=== PATIENT | male | born 1965 | race African-American/Black ===

== ENCOUNTER 2018-04-24 21:48 | Emergency (ER) | payer MEDICAID ==
[~2018-04-24] VITALS: Ht 172.7 cm; Wt 106.8 kg
[2018-04-24] MEDS ORDERED: PRAZ2 PO (22:08)
[2018-04-24] MEDS ORDERED: METF-444 PO (22:08)
[2018-04-24] MEDS ORDERED: OLAN10TA3 PO (22:08)
[2018-04-24 22:56] VITALS: BP 156/88
== END 2018-04-24 23:31 | disposition home or self-care (01) ==
LOC: EMS 21:51
DX: S90.32XA Contusion of left foot, initial encounter (principal); E11.9 Type 2 diabetes mellitus without complications; F17.210 Nicotine dependence, cigarettes, uncomplicated; W22.8XXA Striking against or struck by other objects, initial encounter; Y93.01 Activity, walking, marching and hiking; Y92.89 Other specified places as the place of occurrence of the external cause; Y99.8 Other external cause status
CPT/HCPCS: 99284

== ENCOUNTER 2019-04-26 20:22 | Inpatient (IN) | payer MEDICAID, OTHER ==
[~2019-04-26] VITALS: Ht 172.7 cm; Wt 105.0 kg
[~2019-04-26 20:22] MED LIST: METF-444 PO; OLAN10TA3 PO; PRAZ2 PO
[2019-04-26] MEDS ORDERED: PHEN100C23 PO (21:11)
[2019-04-26 21:20] LABS: BASOPHILS % (AUTO) 0.9 % (0.0-2.0); HEMATOCRIT 44.3 % (41-53); HEMOGLOBIN 14.5 g/dL (13.5-17.5); LYMPHOCYTES % (AUTO) 36.8 % (22.0-44.0); MEAN CORPUSCULAR HEMOGLOBIN 30.7 pg (26.0-34.0); MEAN CORPUSCULAR HGB CONC 32.8 G/dL (31.0-37.0); MEAN CORPUSCULAR VOLUME 94 fL (80-100); MONOCYTES # (AUTO) 0.4 K/uL (0.1-1.0); MONOCYTES % (AUTO) 7.3 % (2.0-9.0); NEUTROPHILS # (AUTO) 2.8 K/uL (1.8-7.7); PLATELET COUNT (AUTO) 260 K/uL (150-450); RED BLOOD CELL COUNT(AUTO) 4.73 MIL/uL (4.50-5.90); RED CELL DISTRIBUTION WIDTH 13.8 % (11.5-14.5)
[2019-04-26 21:28] LABS: ANION GAP 7 mmol/L (8-16); CALCIUM, TOTAL 9.4 mg/dL (8.8-10.5); CARBON DIOXIDE 29 mmol/L (22-29); CHLORIDE 104 mmol/L (98-107); CREATININE 1.24 mg/dL (0.60-1.30); GLOMERULAR FILTR. RATE CALC > 60 mL/min (>60); GLUCOSE,RANDOM 130 mg/dL (70-110); POTASSIUM 3.7 mmol/L (3.5-5.1); SODIUM SERUM 140 mmol/L (136-145); UREA NITROGEN, BLOOD 19 mg/dL (7-18)
[2019-04-26 21:35] LABS: ALANINE AMINOTRANSFERASE 39 U/L (12-78); ALBUMIN 3.6 g/dL (3.4-5.0); ALKALINE PHOSPHATASE 101 U/L (46-116); ASPARTATE AMINOTRANSFERASE 30 U/L (15-37); BILIRUBIN,TOTAL 0.5 mg/dL (0.1-1.0); TOTAL PROTEIN, SERUM 7.5 g/dL (6.4-8.2)
[2019-04-26 21:40] LABS: GLUCOSE,POINT OF CARE 164 MG/DL (70-110)
[2019-04-26 21:42] LABS: AMPHET/METH SCREEN,URINE POSITIVE (NEGATIVE); BARBITURATE SCREEN, URINE NEGATIVE (NEGATIVE); BENZODIAZEPINES SCREEN,URINE NEGATIVE (NEGATIVE); CANNABINOID SCREEN,URINE NEGATIVE (NEGATIVE); COCAINE SCREEN,URINE NEGATIVE (NEGATIVE); METHADONE SCREEN, URINE NEGATIVE (NEGATIVE); OPIATE SCREEN,URINE NEGATIVE (NEGATIVE)
[2019-04-26 21:43] LABS: PHENCYCLIDINE SCREEN,URINE NEGATIVE (NEGATIVE)
[2019-04-26] MEDS ORDERED: DiphenhydrAMINE HCL 50 MG CAPSULE PO ONE (22:15)
[2019-04-26] MEDS ORDERED: LORazepam 2 MG TABLET PO ONE (22:15)
[2019-04-26] MEDS ORDERED: HALOPERIDOL 5 MG TABLET PO ONE (22:15)
[2019-04-27 01:00] VITALS: BP 116/80
[2019-04-27 06:20] LABS: GLUCOMETER DEV NAME(LOC) BV3N.; GLUCOSE,POINT OF CARE 87 MG/DL (70-110)
[2019-04-27 08:19] LABS: HEMOGLOBIN A1C 6.1 % (4.5-6.2)
[2019-04-27 08:30] VITALS: BP 121/71
[2019-04-27 08:43] LABS: ALANINE AMINOTRANSFERASE 29 U/L (12-78); ALKALINE PHOSPHATASE 81 U/L (46-116); ANION GAP 7 mmol/L (8-16); ASPARTATE AMINOTRANSFERASE 25 U/L (15-37); BILIRUBIN,TOTAL 0.3 mg/dL (0.1-1.0); CALCIUM, TOTAL 8.8 mg/dL (8.8-10.5); CARBON DIOXIDE 28 mmol/L (22-29); CHLORIDE 104 mmol/L (98-107); CHOL/HDL RATIO 4.4 (4.2-7.3); CHOLESTEROL 189 mg/dL (131-200); CREATININE 1.08 mg/dL (0.60-1.30); FREE T4 (FREE THYROXINE) 1.17 ng/dL (0.76-1.46); GLOMERULAR FILTR. RATE CALC > 60 mL/min (>60); GLUCOSE,RANDOM 80 mg/dL (70-110); HDL CHOLESTEROL 43 mg/dL (40-60); LDL CHOL (CALC.) 129 mg/dL (0-130); SODIUM SERUM 139 mmol/L (136-145); THYROID STIMULATING HORMONE 1.61 uIU/mL (0.36-3.74); TOTAL PROTEIN, SERUM 5.9 g/dL (6.4-8.2); TRIGLYCERIDES 84 mg/dL (15-150)
[2019-04-27 08:56] LABS: UREA NITROGEN, BLOOD 15 mg/dL (7-18)
[2019-04-27 09:30] VITALS: BP 121/71
[2019-04-27 09:32] VITALS: BP 121/71
[2019-04-27] MEDS ORDERED: LOPERAMIDE HCL 2 MG CAPSULE PO PRN (13:45)
[2019-04-27] MEDS ORDERED: NICOTINE 14 MG/24 HOUR PATCH TD PRN (13:45)
[2019-04-27] MEDS ORDERED: GuaiFENesin/D-METHORPHAN [SUGAR-FREE] 200-20MG/10 ML SYRUP UDCUP PO PRN (13:45)
[2019-04-27] MEDS ORDERED: IBUPROFEN 400 MG TABLET PO PRN (13:45)
[2019-04-27] MEDS ORDERED: CloNIDine HCL 0.1 MG TABLET PO PRN (13:45)
[2019-04-27] MEDS ORDERED: DOCUSATE SODIUM 100 MG CAPSULE PO PRN (13:45)
[2019-04-27] MEDS ORDERED: ACETAMINOPHEN 325 MG TABLET PO PRN (13:45)
[2019-04-27] MEDS ORDERED: MAG HYDROX/AL HYDROX/SIMETH ES 30 ML SUSPENSION UDCUP PO PRN (13:45)
[2019-04-27] MEDS ORDERED: PETROLATUM,WHITE 28 GM JELLY TP PRN (13:45)
[2019-04-27] MEDS ORDERED: MAGNESIUM HYDROXIDE SUSPENSION 30 ML UDCUP PO PRN (13:45)
[2019-04-27] MEDS ORDERED: ALBUTEROL SULFATE HFA 90 MCG/PUFF 8 GM INHALER IH PRN (13:45)
[2019-04-27] MEDS ORDERED: ONDANSETRON HCL 4 MG TABLET PO PRN (13:45)
[2019-04-27] MEDS: PHENYTOIN SODIUM 100 MG ER CAPSULE PO SCH (16:58)
[2019-04-27 18:06] VITALS: BP 110/57
[2019-04-27] MEDS: OLANZapine 10 MG TABLET PO SCH (20:41)
[2019-04-28 06:32] VITALS: BP 112/64
[2019-04-28 08:13] LABS: BASOPHILS % (AUTO) 0.8 % (0.0-2.0); EOSINOPHILS % (AUTO) 4.2 % (1.0-6.0); HEMATOCRIT 45.8 % (41-53); HEMOGLOBIN 14.8 g/dL (13.5-17.5); LYMPHOCYTES # (AUTO) 1.7 K/uL (1.0-4.8); LYMPHOCYTES % (AUTO) 38.8 % (22.0-44.0); MEAN CORPUSCULAR HEMOGLOBIN 30.5 pg (26.0-34.0); MEAN CORPUSCULAR HGB CONC 32.4 G/dL (31.0-37.0); MEAN CORPUSCULAR VOLUME 94 fL (80-100); MONOCYTES # (AUTO) 0.4 K/uL (0.1-1.0); MONOCYTES % (AUTO) 8.5 % (2.0-9.0); NEUTROPHILS # (AUTO) 2.1 K/uL (1.8-7.7); NEUTROPHILS % (AUTO) 47.7 % (40.0-70.0); PLATELET COUNT (AUTO) 259 K/uL (150-450); RED BLOOD CELL COUNT(AUTO) 4.87 MIL/uL (4.50-5.90); RED CELL DISTRIBUTION WIDTH 13.9 % (11.5-14.5)
[2019-04-28] MEDS: PHENYTOIN SODIUM 100 MG ER CAPSULE PO SCH ×2 (08:40→16:47)
[2019-04-28 09:14] VITALS: BP 108/67
[2019-04-28] MEDS: HALOPERIDOL 5 MG TABLET PO PRN (15:12)
[2019-04-28] MEDS: LORazepam 2 MG TABLET PO PRN (15:13)
[2019-04-28 16:13] VITALS: BP 127/81
[2019-04-28] MEDS: OLANZapine 10 MG TABLET PO SCH (20:18)
[2019-04-28] MEDS: ZOLPIDEM TARTRATE 10 MG TABLET PO PRN (20:18)
[2019-04-29 06:16] VITALS: BP 112/72
[2019-04-29] MEDS: PHENYTOIN SODIUM 100 MG ER CAPSULE PO SCH ×2 (08:31→16:47)
[2019-04-29 08:39] VITALS: BP 138/85
[2019-04-29 16:51] VITALS: BP 140/94
[2019-04-29] MEDS ORDERED: DiphenhydrAMINE HCL 50 MG/ML VIAL ONE (19:50)
[2019-04-29] MEDS ORDERED: HALOPERIDOL LACTATE 5 MG/ML VIAL ONE (19:50)
[2019-04-29] MEDS ORDERED: LORazepam 2 MG/ML VIAL ONE (19:50)
[2019-04-29] MEDS ORDERED: DiphenhydrAMINE HCL 50 MG/ML VIAL IM ONE (20:00)
[2019-04-29] MEDS ORDERED: HALOPERIDOL LACTATE 5 MG/ML VIAL IM ONE (20:00)
[2019-04-29] MEDS ORDERED: LORazepam 2 MG/ML VIAL IM ONE (20:00)
[2019-04-29] MEDS: QUEtiapine FUMARATE 100 MG TABLET PO SCH (20:04)
[2019-04-30 08:09] VITALS: BP 122/89
[2019-04-30] MEDS: PHENYTOIN SODIUM 100 MG ER CAPSULE PO SCH ×2 (08:21→16:44)
[2019-04-30] MEDS: LORazepam 2 MG TABLET PO PRN ×2 (09:15→16:44)
[2019-04-30] MEDS: HALOPERIDOL 5 MG TABLET PO PRN (16:44)
[2019-04-30 17:22] VITALS: BP 123/60
[2019-04-30] MEDS: ZOLPIDEM TARTRATE 10 MG TABLET PO PRN (20:34)
[2019-04-30] MEDS: QUEtiapine FUMARATE 100 MG TABLET PO SCH (20:34)
[2019-05-01 08:31] VITALS: BP 130/71
[2019-05-01] MEDS: PHENYTOIN SODIUM 100 MG ER CAPSULE PO SCH (08:37)
[2019-05-01] MEDS: LORazepam 2 MG TABLET PO PRN (08:37)
[2019-05-01] MEDS ORDERED: QUET100T PO (09:43)
[2019-05-01] MEDS ORDERED: PHEN100C23 PO (09:44)
[2019-05-01] MEDS ORDERED: QUET100T33 PO (10:05)
== END 2019-05-01 12:00 | disposition home or self-care (01) | DRG 750 ==
LOC: EMS 20:24 → B3A 23:00
DX: F25.1 Schizoaffective disorder, depressive type (principal); G40.909 Epilepsy, unspecified, not intractable, without status epilepticus; R45.851 Suicidal ideations; F15.10 Other stimulant abuse, uncomplicated; F43.10 Post-traumatic stress disorder, unspecified; F17.210 Nicotine dependence, cigarettes, uncomplicated; Z79.899 Other long term (current) drug therapy; Z59.0 Homelessness
CPT/HCPCS: 83036; 84439; 84443; 99406; G0480; J1200; J1630; J2060

== ENCOUNTER 2019-06-02 11:56 | Inpatient (IN) | payer MEDICAID, OTHER ==
[~2019-06-02] VITALS: Ht 172.7 cm; Wt 97.7 kg
[~2019-06-02 11:56] MED LIST changes: -METF-444 PO; -OLAN10TA3 PO; +PHEN100C23 PO; -PRAZ2 PO; +QUET100T PO; +QUET100T33 PO
[2019-06-02] MEDS ORDERED: LORazepam 2 MG/ML VIAL IM ONE (12:00)
[2019-06-02] MEDS ORDERED: DiphenhydrAMINE HCL 50 MG/ML VIAL IM ONE (12:00)
[2019-06-02] MEDS ORDERED: HALOPERIDOL LACTATE 5 MG/ML VIAL IM ONE (12:00)
[2019-06-02] MEDS ORDERED: DiphenhydrAMINE HCL 50 MG CAPSULE PO ONE (12:30)
[2019-06-02] MEDS ORDERED: HALOPERIDOL 5 MG TABLET PO ONE (12:30)
[2019-06-02] MEDS ORDERED: LORazepam 2 MG TABLET PO ONE (12:30)
[2019-06-02] MEDS ORDERED: ATEN25TA PO (12:33)
[2019-06-02] MEDS ORDERED: HYDR25TA PO (12:33)
[2019-06-02] MEDS ORDERED: SERT100T12 PO (12:33)
[2019-06-02] MEDS ORDERED: LISI-661 PO (12:33)
[2019-06-02 12:35] LABS: BASOPHILS % (AUTO) 0.5 % (0.0-2.0); EOSINOPHILS % (AUTO) 2.8 % (1.0-6.0); HEMATOCRIT 44.2 % (41-53); HEMOGLOBIN 14.3 g/dL (13.5-17.5); LYMPHOCYTES # (AUTO) 1.7 K/uL (1.0-4.8); LYMPHOCYTES % (AUTO) 35.3 % (22.0-44.0); MEAN CORPUSCULAR HEMOGLOBIN 29.9 pg (26.0-34.0); MEAN CORPUSCULAR HGB CONC 32.4 G/dL (31.0-37.0); MEAN CORPUSCULAR VOLUME 92 fL (80-100); MONOCYTES # (AUTO) 0.4 K/uL (0.1-1.0); MONOCYTES % (AUTO) 8.3 % (2.0-9.0); NEUTROPHILS # (AUTO) 2.6 K/uL (1.8-7.7); NEUTROPHILS % (AUTO) 53.1 % (40.0-70.0); PLATELET COUNT (AUTO) 262 K/uL (150-450); RED BLOOD CELL COUNT(AUTO) 4.78 MIL/uL (4.50-5.90); RED CELL DISTRIBUTION WIDTH 13.4 % (11.5-14.5)
[2019-06-02 12:45] LABS: ANION GAP 7 mmol/L (8-16); CALCIUM, TOTAL 9.3 mg/dL (8.8-10.5); CARBON DIOXIDE 27 mmol/L (22-29); CHLORIDE 104 mmol/L (98-107); CREATININE 1.24 mg/dL (0.60-1.30); GLOMERULAR FILTR. RATE CALC > 60 mL/min (>60); GLUCOSE,RANDOM 101 mg/dL (70-110); POTASSIUM 4.2 mmol/L (3.5-5.1); SODIUM SERUM 138 mmol/L (136-145); UREA NITROGEN, BLOOD 13 mg/dL (7-18)
[2019-06-02 12:51] LABS: ALANINE AMINOTRANSFERASE 30 U/L (12-78); ALBUMIN 3.8 g/dL (3.4-5.0); ALKALINE PHOSPHATASE 105 U/L (46-116); ASPARTATE AMINOTRANSFERASE 46 U/L (15-37); BILIRUBIN,TOTAL 0.3 mg/dL (0.1-1.0); TOTAL PROTEIN, SERUM 7.2 g/dL (6.4-8.2)
[2019-06-02 13:18] LABS: PHENYTOIN (DILANTIN) < 0.5 mcg/mL (10.0-20.0)
[2019-06-02] MEDS ORDERED: ZOLPIDEM TARTRATE 10 MG TABLET PO PRN (14:45)
[2019-06-02] MEDS ORDERED: IBUPROFEN 400 MG TABLET PO PRN (22:00)
[2019-06-02] MEDS ORDERED: NICOTINE 14 MG/24 HOUR PATCH TD PRN (22:00)
[2019-06-02] MEDS ORDERED: ALBUTEROL SULFATE HFA 90 MCG/PUFF 8 GM INHALER IH PRN (22:00)
[2019-06-02] MEDS ORDERED: GuaiFENesin/D-METHORPHAN [SUGAR-FREE] 200-20MG/10 ML SYRUP UDCUP PO PRN (22:00)
[2019-06-02] MEDS ORDERED: MAGNESIUM HYDROXIDE SUSPENSION 30 ML UDCUP PO PRN (22:00)
[2019-06-02] MEDS ORDERED: LOPERAMIDE HCL 2 MG CAPSULE PO PRN (22:00)
[2019-06-02] MEDS ORDERED: ONDANSETRON HCL 4 MG TABLET PO PRN (22:00)
[2019-06-02] MEDS ORDERED: ACETAMINOPHEN 325 MG TABLET PO PRN (22:00)
[2019-06-02] MEDS ORDERED: PETROLATUM,WHITE 28 GM JELLY TP PRN (22:00)
[2019-06-02] MEDS ORDERED: MAG HYDROX/AL HYDROX/SIMETH ES 30 ML SUSPENSION UDCUP PO PRN (22:00)
[2019-06-02] MEDS ORDERED: DOCUSATE SODIUM 100 MG CAPSULE PO PRN (22:00)
[2019-06-02] MEDS ORDERED: CloNIDine HCL 0.1 MG TABLET PO PRN (22:00)
[2019-06-03 07:30] LABS: CHOL/HDL RATIO 4.2 (4.2-7.3); THYROID STIMULATING HORMONE 0.89 uIU/mL (0.36-3.74)
[2019-06-03] MEDS: HYDROCHLOROTHIAZIDE 25 MG TABLET PO SCH (09:00)
[2019-06-03] MEDS: PHENYTOIN SODIUM 100 MG ER CAPSULE PO SCH ×2 (09:00→17:24)
[2019-06-03] MEDS ORDERED: DiphenhydrAMINE HCL 50 MG/ML VIAL ONE (10:40)
[2019-06-03] MEDS ORDERED: LORazepam 2 MG/ML VIAL ONE (10:40)
[2019-06-03] MEDS ORDERED: HALOPERIDOL LACTATE 5 MG/ML VIAL ONE (10:40)
[2019-06-03] MEDS ORDERED: HALOPERIDOL LACTATE 5 MG/ML VIAL IM ONE (10:45)
[2019-06-03] MEDS ORDERED: DiphenhydrAMINE HCL 50 MG/ML VIAL IM ONE (10:45)
[2019-06-03] MEDS ORDERED: LORazepam 2 MG/ML VIAL IM ONE (10:45)
[2019-06-03 17:20] VITALS: BP 105/62
[2019-06-03] MEDS: HALOPERIDOL 5 MG TABLET PO PRN (17:24)
[2019-06-03] MEDS: LORazepam 2 MG TABLET PO PRN (17:24)
[2019-06-03] MEDS ORDERED: PNEUMOCOCCAL VACCINE POLYVALENT 0.5 ML VIAL [PPSV23] IM ONE (20:00)
[2019-06-04] MEDS: HYDROCHLOROTHIAZIDE 25 MG TABLET PO SCH (08:41)
[2019-06-04] MEDS: PHENYTOIN SODIUM 100 MG ER CAPSULE PO SCH ×2 (08:41→16:35)
[2019-06-04 08:43] VITALS: BP 115/67
[2019-06-04] MEDS: ARIPiprazole 10 MG TABLET PO SCH (11:15)
[2019-06-04 16:00] VITALS: BP 110/65
[2019-06-04] MEDS: HALOPERIDOL 5 MG TABLET PO PRN (16:34)
[2019-06-04] MEDS: LORazepam 2 MG TABLET PO PRN (16:35)
[2019-06-05] MEDS: ARIPiprazole 10 MG TABLET PO SCH (09:00)
[2019-06-05] MEDS: HYDROCHLOROTHIAZIDE 25 MG TABLET PO SCH (09:00)
[2019-06-05] MEDS: PHENYTOIN SODIUM 100 MG ER CAPSULE PO SCH (09:00)
[2019-06-05] MEDS ORDERED: HYDR12.530 PO (11:48)
[2019-06-05] MEDS ORDERED: ARIP10TA8 PO (11:48)
== END 2019-06-05 16:27 | disposition home or self-care (01) | DRG 750 ==
LOC: EMS 12:00 → B3A 06-03 15:44
PROVIDERS: ADMIT Psychiatry & Neurology Psychiatry; ATTEND Psychiatry & Neurology Psychiatry
DX: F25.1 Schizoaffective disorder, depressive type (principal); R45.850 Homicidal ideations; F43.10 Post-traumatic stress disorder, unspecified; G40.909 Epilepsy, unspecified, not intractable, without status epilepticus; I10 Essential (primary) hypertension; F17.200 Nicotine dependence, unspecified, uncomplicated; R74.0 Nonspecific elevation of levels of transaminase and lactic acid dehydrogenase [LDH]; F19.10 Other psychoactive substance abuse, uncomplicated; F41.9 Anxiety disorder, unspecified
CPT/HCPCS: 84443; 96372; 99406; G0480; J1200; J1630; J2060

== ENCOUNTER 2021-09-02 04:04 | Emergency (ER) | payer SELFPAY ==
[~2021-09-02] VITALS: Ht 172.7 cm; Wt 120.5 kg
[~2021-09-02 04:04] MED LIST changes: +ARIP10TA38 PO; +HYDR12.530 PO; -QUET100T PO; -QUET100T33 PO
[2021-09-02 04:30] VITALS: BP 140/90
[2021-09-02] MEDS ORDERED: KETOROLAC TROMETHAMINE 30 MG/ML VIAL IM ONE (04:30)
[2021-09-02] MEDS ORDERED: COLCHICINE 0.6 MG TABLET PO ONE (04:30)
== END 2021-09-02 06:01 | disposition home or self-care (01) ==
LOC: EMS 04:05
DX: M10.9 Gout, unspecified (principal); F17.210 Nicotine dependence, cigarettes, uncomplicated; F32.9 Major depressive disorder, single episode, unspecified
CPT/HCPCS: 96372; 99283; J1885

== ENCOUNTER 2022-05-27 17:18 | Inpatient (IN) | payer MEDICAID ==
[~2022-05-27] VITALS: Ht 172.7 cm; Wt 101.6 kg
[2022-05-29 08:00] VITALS: BP 121/71
[2022-05-29] MEDS: BuPROPion HCL XL 150 MG ER TABLET PO SCH (09:58)
[2022-05-29] MEDS: ARIPiprazole 10 MG TABLET PO SCH (09:58)
[2022-05-29] MEDS: QUEtiapine FUMARATE 100 MG TABLET PO SCH ×2 (09:58→17:00)
[2022-05-29] MEDS: PHENYTOIN SODIUM 100 MG ER CAPSULE PO SCH ×2 (10:27→16:59)
[2022-05-29] MEDS: HYDROCHLOROTHIAZIDE 25 MG TABLET PO SCH (10:27)
[2022-05-29 16:12] VITALS: BP 105/62
[2022-05-29 16:54] VITALS: BP 121/71
[2022-05-29] MEDS ORDERED: ACETAMINOPHEN 325 MG TABLET PO PRN (18:00)
[2022-05-29] MEDS ORDERED: IBUPROFEN 400 MG TABLET PO PRN (18:00)
[2022-05-29 20:16] VITALS: BP 108/64
[2022-05-30] MEDS ORDERED: PNEUMOCOCCAL VACCINE POLYVALENT 0.5 ML VIAL [PPSV23] IM. ONE (05:15)
[2022-05-30] MEDS ORDERED: ONDANSETRON HCL 4 MG TABLET PO PRN (06:30)
[2022-05-30] MEDS ORDERED: DOCUSATE SODIUM 100 MG CAPSULE PO PRN (06:30)
[2022-05-30] MEDS ORDERED: GuaiFENesin/D-METHORPHAN [SUGAR-FREE] 200-20MG/10 ML SYRUP UDCUP PO PRN (06:30)
[2022-05-30] MEDS ORDERED: MAGNESIUM HYDROXIDE SUSPENSION 30 ML UDCUP PO PRN (06:30)
[2022-05-30] MEDS ORDERED: ALBUTEROL SULFATE HFA 90 MCG/PUFF 8 GM INHALER IH PRN (06:30)
[2022-05-30] MEDS ORDERED: NICOTINE 14 MG/24 HOUR PATCH TD PRN (06:30)
[2022-05-30] MEDS ORDERED: CloNIDine HCL 0.1 MG TABLET PO PRN (06:30)
[2022-05-30] MEDS ORDERED: LOPERAMIDE HCL 2 MG CAPSULE PO PRN (06:30)
[2022-05-30] MEDS ORDERED: PETROLATUM,WHITE 28 GM JELLY TP PRN (06:30)
[2022-05-30] MEDS ORDERED: MAG HYDROX/AL HYDROX/SIMETH ES 30 ML SUSPENSION UDCUP PO PRN (06:30)
[2022-05-30 08:28] VITALS: BP 128/75
[2022-05-30] MEDS: ARIPiprazole 10 MG TABLET PO SCH (08:31)
[2022-05-30] MEDS: PHENYTOIN SODIUM 100 MG ER CAPSULE PO SCH ×2 (08:31→16:14)
[2022-05-30] MEDS: BuPROPion HCL XL 150 MG ER TABLET PO SCH (08:31)
[2022-05-30] MEDS: QUEtiapine FUMARATE 100 MG TABLET PO SCH ×2 (08:32→16:15)
[2022-05-30] MEDS: HYDROCHLOROTHIAZIDE 25 MG TABLET PO SCH (08:32)
[2022-05-30] MEDS: LORazepam 1 MG TABLET PO PRN (15:23)
[2022-05-30 20:36] VITALS: BP 140/76
[2022-05-31] MEDS: PHENYTOIN SODIUM 100 MG ER CAPSULE PO SCH ×2 (08:23→17:02)
[2022-05-31] MEDS: ARIPiprazole 10 MG TABLET PO SCH (08:23)
[2022-05-31] MEDS: QUEtiapine FUMARATE 100 MG TABLET PO SCH ×2 (08:23→17:02)
[2022-05-31] MEDS: HYDROCHLOROTHIAZIDE 25 MG TABLET PO SCH (08:24)
[2022-05-31] MEDS: BuPROPion HCL XL 150 MG ER TABLET PO SCH (08:24)
[2022-05-31 08:36] VITALS: BP 121/67
[2022-05-31 20:21] VITALS: BP 127/67
[2022-06-01] MEDS: ARIPiprazole 10 MG TABLET PO SCH (08:14)
[2022-06-01] MEDS: PHENYTOIN SODIUM 100 MG ER CAPSULE PO SCH ×2 (08:14→17:06)
[2022-06-01] MEDS: BuPROPion HCL XL 150 MG ER TABLET PO SCH (08:14)
[2022-06-01] MEDS: QUEtiapine FUMARATE 100 MG TABLET PO SCH ×2 (08:14→17:05)
[2022-06-01] MEDS: HYDROCHLOROTHIAZIDE 25 MG TABLET PO SCH (08:15)
[2022-06-01 10:31] VITALS: BP 120/72
[2022-06-01 20:13] VITALS: BP 109/68
[2022-06-02] MEDS: PHENYTOIN SODIUM 100 MG ER CAPSULE PO SCH ×2 (08:24→16:07)
[2022-06-02] MEDS: ARIPiprazole 10 MG TABLET PO SCH (08:24)
[2022-06-02] MEDS: LORazepam 1 MG TABLET PO PRN ×2 (08:24→23:58)
[2022-06-02] MEDS: QUEtiapine FUMARATE 100 MG TABLET PO SCH ×2 (08:24→16:07)
[2022-06-02] MEDS: HYDROCHLOROTHIAZIDE 25 MG TABLET PO SCH (08:25)
[2022-06-02] MEDS: BuPROPion HCL XL 150 MG ER TABLET PO SCH (08:25)
[2022-06-02 08:42] VITALS: BP 133/68
[2022-06-02 20:12] VITALS: BP 110/69
[2022-06-02] MEDS: ZOLPIDEM TARTRATE 10 MG TABLET PO PRN (23:58)
[2022-06-03] MEDS: ARIPiprazole 10 MG TABLET PO SCH (08:30)
[2022-06-03] MEDS: PHENYTOIN SODIUM 100 MG ER CAPSULE PO SCH ×2 (08:31→16:41)
[2022-06-03] MEDS: BuPROPion HCL XL 150 MG ER TABLET PO SCH (08:31)
[2022-06-03] MEDS: HYDROCHLOROTHIAZIDE 25 MG TABLET PO SCH (08:31)
[2022-06-03] MEDS: LORazepam 1 MG TABLET PO PRN ×2 (08:31→22:22)
[2022-06-03] MEDS: QUEtiapine FUMARATE 100 MG TABLET PO SCH ×2 (08:31→16:41)
[2022-06-03 08:56] VITALS: BP 120/84
[2022-06-03 20:07] VITALS: BP 122/79
[2022-06-03] MEDS: ZOLPIDEM TARTRATE 10 MG TABLET PO PRN (22:23)
[2022-06-04] MEDS: QUEtiapine FUMARATE 100 MG TABLET PO SCH ×2 (08:47→16:48)
[2022-06-04] MEDS: HYDROCHLOROTHIAZIDE 25 MG TABLET PO SCH (08:47)
[2022-06-04] MEDS: ARIPiprazole 10 MG TABLET PO SCH (08:47)
[2022-06-04] MEDS: PHENYTOIN SODIUM 100 MG ER CAPSULE PO SCH ×2 (08:47→16:48)
[2022-06-04] MEDS: BuPROPion HCL XL 150 MG ER TABLET PO SCH (08:47)
[2022-06-04 10:27] VITALS: BP 110/75
[2022-06-04] MEDS ORDERED: QUET100T34 PO (10:40)
[2022-06-04] MEDS ORDERED: BUPR-49 PO (10:40)
[2022-06-04] MEDS ORDERED: ARIP10TA38 PO (10:40)
[2022-06-04] MEDS ORDERED: BUPR-50 PO (18:58)
[2022-06-04] MEDS ORDERED: QUET100T PO (18:59)
[2022-06-04 21:32] VITALS: BP 125/94
== END 2022-06-05 07:16 | disposition home or self-care (01) | DRG 750 ==
LOC: B3A 05-29 06:30
PROVIDERS: ADMIT Psychiatry & Neurology Child & Adolescent Psychiatry; ATTEND Psychiatry & Neurology Child & Adolescent Psychiatry
DX: F25.0 Schizoaffective disorder, bipolar type (principal); F23 Brief psychotic disorder; F17.200 Nicotine dependence, unspecified, uncomplicated; G40.909 Epilepsy, unspecified, not intractable, without status epilepticus; I10 Essential (primary) hypertension; Z28.21 Immunization not carried out because of patient refusal
CPT/HCPCS: Z7610

== ENCOUNTER 2022-08-28 00:18 | Emergency (ER) | payer MEDICAID ==
[~2022-08-28] VITALS: Ht 172.7 cm; Wt 101.6 kg
[~2022-08-28 00:18] MED LIST changes: +BUPR-49 PO; +BUPR-50 PO; +QUET100T PO; +QUET100T34 PO
[2022-08-28] MEDS ORDERED: LORazepam 1 MG TABLET PO ONE (03:30)
[2022-08-28 03:46] LABS: COVID AG,FIA SOURCE NASOPHARYNGEAL
[2022-08-28 04:20] LABS: BASOPHILS % (AUTO) 0.6 % (0.0-2.0); EOSINOPHILS % (AUTO) 4.1 % (1.0-6.0); HEMATOCRIT 39.4 % (41-53); HEMOGLOBIN 13.1 g/dL (13.5-17.5); LYMPHOCYTES # (AUTO) 1.1 K/uL (1.0-4.8); LYMPHOCYTES % (AUTO) 22.6 % (22.0-44.0); MEAN CORPUSCULAR HEMOGLOBIN 30.2 pg (26.0-34.0); MEAN CORPUSCULAR HGB CONC 33.2 G/dL (31.0-37.0); MEAN CORPUSCULAR VOLUME 91 fL (80-100); MONOCYTES # (AUTO) 0.6 K/uL (0.1-1.0); MONOCYTES % (AUTO) 12.9 % (2.0-9.0); NEUTROPHILS # (AUTO) 2.9 K/uL (1.8-7.7); NEUTROPHILS % (AUTO) 59.8 % (40.0-70.0); PLATELET COUNT (AUTO) 259 K/uL (150-450); RED BLOOD CELL COUNT(AUTO) 4.33 MIL/uL (4.50-5.90); RED CELL DISTRIBUTION WIDTH 14.1 % (11.5-14.5)
[2022-08-28 04:33] LABS: ANION GAP 4 mmol/L (8-16); CALCIUM, TOTAL 9.5 mg/dL (8.8-10.5); CARBON DIOXIDE 32 mmol/L (22-29); CHLORIDE 104 mmol/L (98-107); CREATININE 1.25 mg/dL (0.60-1.30); GLUCOSE,RANDOM 153 mg/dL (70-110); POTASSIUM 4.4 mmol/L (3.5-5.1); SODIUM SERUM 140 mmol/L (136-145); UREA NITROGEN, BLOOD 14 mg/dL (7-18)
[2022-08-28 04:35] LABS: GLOMERULAR FILTR. RATE CALC > 60 mL/min (>60)
[2022-08-28 04:39] LABS: ALANINE AMINOTRANSFERASE 39 U/L (12-78); ALBUMIN 3.6 g/dL (3.4-5.0); ALKALINE PHOSPHATASE 96 U/L (46-116); ASPARTATE AMINOTRANSFERASE 31 U/L (15-37); BILIRUBIN,TOTAL 0.2 mg/dL (0.1-1.0); TOTAL PROTEIN, SERUM 7.3 g/dL (6.4-8.2)
[2022-08-28 06:07] VITALS: BP 130/74
== END 2022-08-28 06:10 | disposition home or self-care (01) ==
LOC: EMS 00:19
DX: F20.9 Schizophrenia, unspecified (principal); F41.9 Anxiety disorder, unspecified; F31.9 Bipolar disorder, unspecified; F17.210 Nicotine dependence, cigarettes, uncomplicated; F10.90 Alcohol use, unspecified, uncomplicated; F12.90 Cannabis use, unspecified, uncomplicated; F15.90 Other stimulant use, unspecified, uncomplicated; Z98.890 Other specified postprocedural states; Z20.822 Contact with and (suspected) exposure to COVID-19
CPT/HCPCS: 99284; 87426; 80053; 85025; 36415; G0480

== ENCOUNTER 2023-01-06 18:19 | Inpatient (IN) | payer MEDICAID ==
[~2023-01-06] VITALS: Ht 172.7 cm; Wt 102.1 kg
[2023-01-06] MEDS ORDERED: HALOPERIDOL 5 MG TABLET PO PRN (19:15)
[2023-01-06] MEDS ORDERED: PNEUMOCOCCAL VACCINE POLYVALENT 0.5 ML VIAL [PPSV23] IM. ONE (19:15)
[2023-01-06] MEDS ORDERED: LORazepam 2 MG TABLET PO PRN (19:15)
[2023-01-06] MEDS ORDERED: ZOLPIDEM TARTRATE 10 MG TABLET PO PRN (19:15)
[2023-01-06] MEDS ORDERED: HYDR12.54 PO (19:16)
[2023-01-06] MEDS ORDERED: QUET100T PO (19:16)
[2023-01-06 20:15] VITALS: BP 133/83
[2023-01-07] MEDS ORDERED: ONDANSETRON HCL 4 MG TABLET PO PRN (05:30)
[2023-01-07] MEDS ORDERED: ACETAMINOPHEN 325 MG TABLET PO PRN (05:30)
[2023-01-07] MEDS ORDERED: BACITRACIN 28 GM OINTMENT TP PRN (05:30)
[2023-01-07] MEDS ORDERED: MAGNESIUM HYDROXIDE SUSPENSION 30 ML UDCUP PO PRN (05:30)
[2023-01-07] MEDS ORDERED: DOCUSATE SODIUM 100 MG CAPSULE PO PRN (05:30)
[2023-01-07] MEDS ORDERED: CloNIDine HCL 0.1 MG TABLET PO PRN (05:30)
[2023-01-07] MEDS ORDERED: PETROLATUM,WHITE 28 GM JELLY TP PRN (05:30)
[2023-01-07] MEDS ORDERED: LOPERAMIDE HCL 2 MG CAPSULE PO PRN (05:30)
[2023-01-07] MEDS ORDERED: BENZOCAINE/MENTHOL LOZENGE PO PRN (05:30)
[2023-01-07] MEDS ORDERED: MAG HYDROX/AL HYDROX/SIMETH ES 30 ML SUSPENSION UDCUP PO PRN (05:30)
[2023-01-07] MEDS ORDERED: ALBUTEROL SULFATE HFA 90 MCG/PUFF 8 GM INHALER IH PRN (05:30)
[2023-01-07] MEDS ORDERED: IBUPROFEN 600 MG TABLET PO PRN (05:30)
[2023-01-07] MEDS ORDERED: OMEPRAZOLE 20 MG CAPSULE PO PRN (05:30)
[2023-01-07] MEDS ORDERED: PHENYTOIN SODIUM 100 MG ER CAPSULE PO SCH (09:00)
== END 2023-01-07 11:15 | disposition home or self-care (01) | DRG 750 ==
LOC: B3A 19:08
PROVIDERS: ADMIT Psychiatry & Neurology Psychiatry; ATTEND Psychiatry & Neurology Psychiatry
DX: F20.9 Schizophrenia, unspecified (principal); G40.909 Epilepsy, unspecified, not intractable, without status epilepticus; E66.9 Obesity, unspecified; F17.200 Nicotine dependence, unspecified, uncomplicated; F41.9 Anxiety disorder, unspecified; Z20.822 Contact with and (suspected) exposure to COVID-19; G47.00 Insomnia, unspecified; K21.9 Gastro-esophageal reflux disease without esophagitis; K59.00 Constipation, unspecified; Z68.34 Body mass index [BMI] 34.0-34.9, adult; Z71.6 Tobacco abuse counseling; Z28.9 Immunization not carried out for unspecified reason
CPT/HCPCS: Z7610

== ENCOUNTER 2023-02-12 10:33 | Inpatient (IN) | payer MEDICAID ==
[~2023-02-12] VITALS: Ht 172.7 cm; Wt 105.7 kg
[~2023-02-12 10:33] MED LIST changes: -ARIP10TA38 PO; -BUPR-49 PO; -BUPR-50 PO; -HYDR12.530 PO; -QUET100T PO; -QUET100T34 PO
[2023-02-12] MEDS ORDERED: DiphenhydrAMINE HCL 50 MG/ML VIAL ONE (11:32)
[2023-02-12] MEDS ORDERED: HALOPERIDOL LACTATE 5 MG/ML VIAL ONE (11:32)
[2023-02-12] MEDS ORDERED: LORazepam 2 MG/ML VIAL ONE (11:32)
[2023-02-12 12:50] VITALS: BP 147/88
[2023-02-12 16:02] VITALS: BP 120/70
[2023-02-12] MEDS: LORazepam 2 MG TABLET PO PRN (17:10)
[2023-02-12] MEDS: HALOPERIDOL 5 MG TABLET PO PRN (17:10)
[2023-02-12 20:03] VITALS: BP 120/70
[2023-02-12] MEDS: ZOLPIDEM TARTRATE 10 MG TABLET PO PRN (20:20)
[2023-02-12] MEDS ORDERED: QUEtiapine FUMARATE 100 MG TABLET PO SCH (21:00)
[2023-02-12] MEDS ORDERED: PNEUMOCOCCAL VACCINE POLYVALENT 0.5 ML VIAL [PPSV23] IM. ONE (22:00)
[2023-02-12] MEDS ORDERED: PETROLATUM,WHITE 28 GM JELLY TP PRN (23:15)
[2023-02-12] MEDS ORDERED: CloNIDine HCL 0.1 MG TABLET PO PRN (23:15)
[2023-02-12] MEDS ORDERED: ONDANSETRON HCL 4 MG TABLET PO PRN (23:15)
[2023-02-12] MEDS ORDERED: LOPERAMIDE HCL 2 MG CAPSULE PO PRN (23:15)
[2023-02-12] MEDS ORDERED: OMEPRAZOLE 20 MG CAPSULE PO PRN (23:15)
[2023-02-12] MEDS ORDERED: MAGNESIUM HYDROXIDE SUSPENSION 30 ML UDCUP PO PRN (23:15)
[2023-02-12] MEDS ORDERED: MAG HYDROX/AL HYDROX/SIMETH ES 30 ML SUSPENSION UDCUP PO PRN (23:15)
[2023-02-12] MEDS ORDERED: ALBUTEROL SULFATE HFA 90 MCG/PUFF 8 GM INHALER IH PRN (23:15)
[2023-02-12] MEDS ORDERED: DOCUSATE SODIUM 100 MG CAPSULE PO PRN (23:15)
[2023-02-12] MEDS ORDERED: ACETAMINOPHEN 325 MG TABLET PO PRN (23:15)
[2023-02-12] MEDS ORDERED: IBUPROFEN 600 MG TABLET PO PRN (23:15)
[2023-02-12] MEDS ORDERED: BACITRACIN 28 GM OINTMENT TP PRN (23:15)
[2023-02-13 08:04] LABS: BASOPHILS % (AUTO) 1.5 % (0.0-2.0); EOSINOPHILS % (AUTO) 3.6 % (1.0-6.0); HEMATOCRIT 42.9 % (41-53); HEMOGLOBIN 14.3 g/dL (13.5-17.5); LYMPHOCYTES # (AUTO) 1.5 K/uL (1.0-4.8); LYMPHOCYTES % (AUTO) 37.6 % (22.0-44.0); MEAN CORPUSCULAR HEMOGLOBIN 30.3 pg (26.0-34.0); MEAN CORPUSCULAR HGB CONC 33.2 G/dL (31.0-37.0); MEAN CORPUSCULAR VOLUME 91 fL (80-100); MONOCYTES # (AUTO) 0.3 K/uL (0.1-1.0); MONOCYTES % (AUTO) 6.3 % (2.0-9.0); NEUTROPHILS # (AUTO) 2.1 K/uL (1.8-7.7); PLATELET COUNT (AUTO) 267 K/uL (150-450)
[2023-02-13 08:07] LABS: HEMOGLOBIN A1C 6.3 % (3.8-5.6)
[2023-02-13] MEDS: BuPROPion HCL XL 150 MG ER TABLET PO SCH (08:08)
[2023-02-13] MEDS: PHENYTOIN SODIUM 100 MG ER CAPSULE PO SCH ×2 (08:08→16:22)
[2023-02-13 08:18] VITALS: BP 112/76
[2023-02-13 08:35] LABS: ALANINE AMINOTRANSFERASE 40 U/L (12-78); ALBUMIN 3.4 g/dL (3.4-5.0); ALKALINE PHOSPHATASE 104 U/L (46-116); ANION GAP 9 mmol/L (8-16); ASPARTATE AMINOTRANSFERASE 29 U/L (15-37); BILIRUBIN,TOTAL 0.3 mg/dL (0.1-1.0); CALCIUM, TOTAL 9.1 mg/dL (8.8-10.5); CARBON DIOXIDE 23 mmol/L (22-29); CHLORIDE 108 mmol/L (98-107); CHOL/HDL RATIO 3.7 (4.2-7.3); CHOLESTEROL 202 mg/dL (131-200); FREE T4 (FREE THYROXINE) 0.89 ng/dL (0.76-1.46); GLOMERULAR FILTR. RATE CALC > 60 mL/min (>60); GLUCOSE,RANDOM 128 mg/dL (70-110); HDL CHOLESTEROL 55 mg/dL (40-60); LDL CHOL (CALC.) 121 mg/dL (0-130); POTASSIUM 3.8 mmol/L (3.5-5.1); SODIUM SERUM 140 mmol/L (136-145); THYROID STIMULATING HORMONE 0.79 uIU/mL (0.36-3.74); TOTAL PROTEIN, SERUM 7.2 g/dL (6.4-8.2); TRIGLYCERIDES 130 mg/dL (15-150)
[2023-02-13 12:53] LABS: APPEARANCE,URINE CLEAR (CLEAR); BILIRUBIN,URINE NEGATIVE (NEGATIVE); GLUCOSE, URINE (UA) NEGATIVE (NEGATIVE); KETONES,URINE NEGATIVE (NEGATIVE); LEUKOCYTE ESTERASE ,URINE NEGATIVE (NEGATIVE); NITRATE,URINE NEGATIVE (NEGATIVE); OCCULT BLOOD,URINE NEGATIVE (NEGATIVE); PROTEIN,URINE TRACE mg/dL (NEGATIVE); SPECIFIC GRAVITIY, URINE 1.032 (1.003-1.030); UROBILINOGEN,URINE <=1.0 mg/dL (<=1.0)
[2023-02-13 13:55] LABS: AMPHET/METH SCREEN,URINE NEGATIVE (NEGATIVE); BARBITURATE SCREEN, URINE NEGATIVE (NEGATIVE); BENZODIAZEPINES SCREEN,URINE NEGATIVE (NEGATIVE); CANNABINOID SCREEN,URINE NEGATIVE (NEGATIVE); COCAINE SCREEN,URINE NEGATIVE (NEGATIVE); METHADONE SCREEN, URINE NEGATIVE (NEGATIVE); OPIATE SCREEN,URINE NEGATIVE (NEGATIVE); PHENCYCLIDINE SCREEN,URINE NEGATIVE (NEGATIVE)
[2023-02-13] MEDS: LORazepam 2 MG TABLET PO PRN (16:22)
[2023-02-13] MEDS: HALOPERIDOL 5 MG TABLET PO PRN (16:22)
[2023-02-13] MEDS: ZOLPIDEM TARTRATE 10 MG TABLET PO PRN (20:40)
[2023-02-13] MEDS: QUEtiapine FUMARATE 300 MG TABLET PO SCH (20:40)
[2023-02-13 21:30] VITALS: BP 132/80
[2023-02-14 08:01] VITALS: BP 128/78
[2023-02-14] MEDS: PHENYTOIN SODIUM 100 MG ER CAPSULE PO SCH ×2 (08:29→16:33)
[2023-02-14] MEDS: BuPROPion HCL XL 150 MG ER TABLET PO SCH (08:29)
[2023-02-14] MEDS: LORazepam 2 MG TABLET PO PRN (16:33)
[2023-02-14 20:28] VITALS: BP 115/66
[2023-02-14] MEDS: ZOLPIDEM TARTRATE 10 MG TABLET PO PRN (20:36)
[2023-02-14] MEDS: QUEtiapine FUMARATE 300 MG TABLET PO SCH (20:36)
[2023-02-15] MEDS: PHENYTOIN SODIUM 100 MG ER CAPSULE PO SCH ×2 (08:06→16:11)
[2023-02-15] MEDS: BuPROPion HCL XL 150 MG ER TABLET PO SCH (08:06)
[2023-02-15 08:09] VITALS: BP 107/69
[2023-02-15 20:01] VITALS: BP 121/66
[2023-02-15] MEDS: ZOLPIDEM TARTRATE 10 MG TABLET PO PRN (20:51)
[2023-02-15] MEDS: HALOPERIDOL 5 MG TABLET PO PRN (20:51)
[2023-02-15] MEDS: LORazepam 2 MG TABLET PO PRN (20:52)
[2023-02-15] MEDS: QUEtiapine FUMARATE 300 MG TABLET PO SCH (20:52)
[2023-02-16] MEDS: PHENYTOIN SODIUM 100 MG ER CAPSULE PO SCH (08:11)
[2023-02-16] MEDS: BuPROPion HCL XL 150 MG ER TABLET PO SCH (08:11)
[2023-02-16 08:33] VITALS: BP 116/67
[2023-02-16] MEDS ORDERED: QUET300T19 PO (10:20)
[2023-02-16] MEDS ORDERED: BUPR-49 PO (10:20)
== END 2023-02-16 14:19 | disposition home or self-care (01) | DRG 750 ==
LOC: B3A 11:41
PROVIDERS: ADMIT Psychiatry & Neurology Psychiatry; ATTEND Psychiatry & Neurology Psychiatry
DX: F20.9 Schizophrenia, unspecified (principal); G40.909 Epilepsy, unspecified, not intractable, without status epilepticus; F41.9 Anxiety disorder, unspecified; G47.00 Insomnia, unspecified; K21.9 Gastro-esophageal reflux disease without esophagitis; K59.00 Constipation, unspecified; Z72.0 Tobacco use
CPT/HCPCS: 80053; 80061; 80307; 81003; 83036; 84436; 84439; 84443; 85025; 86592; G0480; J1200; J1630; J2060